=== PATIENT | male | born 1945 ===

== ENCOUNTER 2024-09-06 09:25 | Inpatient (IN) ==
[2024-09-06] MEDS: HYDROmorphone 0.5 MG/0.5 ML SYRINGE IV ONE (11:20)
[2024-09-06 11:41] LABS: ALT/SGPT 42 U/L (<40); AST/SGOT 33 U/L (<40); Albumin 3.9 gm/dL (3.2-5.2); Albumin/Globulin Ratio 1.4 (1.0-2.3); Alkaline Phosphatase 74 U/L (39-117); Anion Gap 12.0 (8.0-16.0); Bilirubin,Total 1.1 mg/dL (0.1-1.0); Blood Urea Nitrogen 25 mg/dL (8-23); Calcium 8.7 mg/dL (8.6-10.4); Carbon Dioxide 22 mmol/L (22-30); Chloride 103 mmol/L (96-108); Globulin 2.8 gm/dL (2.2-3.7); Glucose 172 mg/dL (70-105); Potassium 4.4 mmol/L (3.3-5.1); Sodium 137 mmol/L (133-145)
[2024-09-06 12:15] LABS: Basophils # (Auto) 0.03 K/mcL (0.00-0.30); Basophils % (Auto) 0.3 % (0.0-2.0); Eosinophils # (Auto) 0.01 K/mcL (0.00-0.70); Eosinophils % (Auto) 0.1 % (0.0-7.0); Hematocrit 43.6 % (40.1-51.0); Hemoglobin 14.3 g/dL (13.7-17.5); Lymphocytes # (Auto) 0.60 K/mcL (1.50-4.80); Lymphocytes % (Auto) 6.0 % (15.5-49.0); Mean Corpuscular HGB Conc 32.8 g/dL (31.0-36.0); Monocytes # (Auto) 0.94 K/mcL (0.10-0.90); Monocytes % (Auto) 9.4 % (1.0-12.0); Neutrophils % (Auto) 83.4 % (38.0-78.0); Platelet Count 95 K/mcL (140-440); RBC 4.59 M/mcL (4.63-6.08); WBC 10.0 K/mcL (4.5-11.0)
[2024-09-06] MEDS ORDERED: HYDROmorphone 0.5 MG/0.5 ML SYRINGE IV PRN ×2 (14:43→19:47)
[2024-09-06] MEDS ORDERED: ONDANSETRON 4 MG/2 ML VIAL IV PRN (14:43)
[2024-09-06] MEDS: 0.9 % SODIUM CHLORIDE 10 ML SYRINGE IV SCH (15:04)
[2024-09-06] MEDS: ACETAMINOPHEN 1,000 MG/100 ML BAG IV SCH (15:06)
[2024-09-06] MEDS ORDERED: DEXTROSE 50% 50 ML VIAL IV PRN (19:43)
[2024-09-06] MEDS ORDERED: DEXTROSE 31 GM ORAL.SUSP PO PRN (19:43)
[2024-09-06] MEDS: AMITRIPTYLINE 25 MG TABLET PO SCH (20:15)
[2024-09-06] MEDS: ATORVASTATIN 40 MG TABLET PO SCH (20:15)
[2024-09-06] MEDS: INSULIN LISPRO 1 UNIT/0.01 ML UNIT SQ SCH (20:15)
[2024-09-06] MEDS: SENNOSIDES 1 TABLET PO SCH (20:15)
[2024-09-06] MEDS: HEPARIN 5,000 UNIT/ML VIAL SQ SCH (20:21)
[2024-09-07 06:50] LABS: ALT/SGPT 35 U/L (<40); AST/SGOT 26 U/L (<40); Albumin 3.6 gm/dL (3.2-5.2); Albumin/Globulin Ratio 1.4 (1.0-2.3); Alkaline Phosphatase 69 U/L (39-117); Anion Gap 10.0 (8.0-16.0); Bilirubin,Direct 0.4 mg/dL (<0.3); Bilirubin,Total 0.8 mg/dL (0.1-1.0); Blood Urea Nitrogen 23 mg/dL (8-23); Calcium 8.3 mg/dL (8.6-10.4); Carbon Dioxide 25 mmol/L (22-30); Chloride 104 mmol/L (96-108); Globulin 2.6 gm/dL (2.2-3.7); Glucose 157 mg/dL (70-105); Phosphorous 2.7 mg/dL (2.5-4.5); Potassium 4.0 mmol/L (3.3-5.1); Sodium 139 mmol/L (133-145); Triglycerides 135 mg/dL (<150); Uric Acid 5.5 mg/dL (2.5-8.0)
[2024-09-07 07:21] LABS: Basophils # (Auto) 0.05 K/mcL (0.00-0.30); Basophils % (Auto) 0.6 % (0.0-2.0); Eosinophils # (Auto) 0.29 K/mcL (0.00-0.70); Eosinophils % (Auto) 3.7 % (0.0-7.0); Hematocrit 42.6 % (40.1-51.0); Hemoglobin 14.1 g/dL (13.7-17.5); Lymphocytes # (Auto) 1.32 K/mcL (1.50-4.80); Lymphocytes % (Auto) 16.7 % (15.5-49.0); Mean Corpuscular HGB Conc 33.1 g/dL (31.0-36.0); Monocytes # (Auto) 1.07 K/mcL (0.10-0.90); Monocytes % (Auto) 13.6 % (1.0-12.0); Neutrophils % (Auto) 64.8 % (38.0-78.0); Platelet Count 93 K/mcL (140-440); RBC 4.49 M/mcL (4.63-6.08); WBC 7.9 K/mcL (4.5-11.0)
[2024-09-07 07:45] LABS: Estimated Average Glucose(eAG) 137.0 mg/dL; Hemoglobin A1C 6.4 % Hgb (4.0-6.0)
[2024-09-07] MEDS: TAMSULOSIN 0.4 MG CAPSULE PO SCH (08:24)
[2024-09-07] MEDS: POLYETHYLENE GLYCOL 3350 17 GM PACKET PO PRN (18:57)
[2024-09-07] MEDS: HYDROmorphone 0.5 MG/0.5 ML SYRINGE IV PRN (19:38)
[2024-09-07] MEDS: DILTIAZEM 120 MG CAP.XL.24H PO SCH (20:14)
[2024-09-07] MEDS: METOPROLOL SUCCINATE 50 MG TAB.XL.24H PO SCH (20:15)
[2024-09-08] MEDS ORDERED: BISACODYL 10 MG SUPP.RECT PR PRN (06:02)
[2024-09-08] MEDS ORDERED: LACTULOSE 20 GM/30 ML ORAL.SOL PO PRN ×2 (06:09→06:30)
[2024-09-08] MEDS ORDERED: POLYETHYLENE GLYCOL 3350 17 GM PACKET PO SCH (06:15)
[2024-09-08] MEDS: ACETAMINOPHEN 325 MG TABLET PO SCH (07:34)
[2024-09-08] MEDS: ACETAMINOPHEN 500 MG TABLET PO SCH (13:48)
[2024-09-09 06:43] LABS: Albumin 3.4 gm/dL (3.2-5.2); Anion Gap 12.0 (8.0-16.0); Blood Urea Nitrogen 19 mg/dL (8-23); Calcium 8.9 mg/dL (8.6-10.4); Carbon Dioxide 22 mmol/L (22-30); Chloride 101 mmol/L (96-108); Glucose 146 mg/dL (70-105); Phosphorous 2.9 mg/dL (2.5-4.5); Potassium 4.0 mmol/L (3.3-5.1); Sodium 135 mmol/L (133-145)
[2024-09-09 07:40] LABS: Basophils # (Auto) 0.05 K/mcL (0.00-0.30); Basophils % (Auto) 0.5 % (0.0-2.0); Eosinophils # (Auto) 0.36 K/mcL (0.00-0.70); Eosinophils % (Auto) 3.8 % (0.0-7.0); Hematocrit 44.1 % (40.1-51.0); Hemoglobin 15.0 g/dL (13.7-17.5); Lymphocytes # (Auto) 0.99 K/mcL (1.50-4.80); Lymphocytes % (Auto) 10.5 % (15.5-49.0); Mean Corpuscular HGB Conc 34.0 g/dL (31.0-36.0); Monocytes # (Auto) 0.83 K/mcL (0.10-0.90); Monocytes % (Auto) 8.8 % (1.0-12.0); Neutrophils % (Auto) 75.3 % (38.0-78.0); Platelet Count 130 K/mcL (140-440); RBC 4.80 M/mcL (4.63-6.08); WBC 9.4 K/mcL (4.5-11.0)
[2024-09-09] MEDS: LIDOCAINE 4% TOP PATCH TOPICAL SCH (10:36)
== END 2024-09-09 12:30 | DRG 206 ==
LOC: ED 09:25 → MEDSUR 14:27
PROVIDERS: ADMIT Internal Medicine; ATTEND Internal Medicine